=== PATIENT | male | born 1945 | race Two or more races ===

== ENCOUNTER 2022-03-15 17:55 | Emergency (ER) | payer BC ==
[~2022-03-15] VITALS: Ht 172.7 cm; Wt 81.6 kg
--- NOTE | 2022-03-15 18:27 | NUR ---
Patient triaged and placed in waiting room. VSS and patient appears in no acute distress at this time. Accompanied by DAUGHTER, awaiting available bed, and MD notified of need for MSE. Addendum: 03/16/22 at 0827 by [email or web address] CLARIFICATION: CHARTING ON WRONG PT.
--- NOTE | 2022-03-15 18:40 | NUR ---
MD HARRY AT BESIDE
[2022-03-15 20:08] LABS: BASOPHILS % (AUTO) 0.6 % (0.0-2.0); EOSINOPHILS # (AUTO) 0.2 K/uL (0.0-0.4); EOSINOPHILS % (AUTO) 2.5 % (0.0-4.0); HEMOGLOBIN 12.3 g/dL (14.0-18.0); LYMPHOCYTES # (AUTO) 1.1 K/uL (1.0-5.5); LYMPHOCYTES % (AUTO) 14.5 % (20.5-51.5); MEAN CORPUSCULAR HEMOGLOBIN 32 pg (27-31); MEAN CORPUSCULAR HGB CONC 34 % (32-36); MEAN CORPUSCULAR VOLUME 95 fL (79.0-98.0); MONOCYTES # (AUTO) 0.7 K/uL (0.0-1.0); MONOCYTES % (AUTO) 8.8 % (1.7-9.3); NEUTROPHILS # (AUTO) 5.6 K/uL (1.8-7.7); NEUTROPHILS % (AUTO) 73.6 % (40.0-70.0); PLATELET COUNT (AUTO) 145 K/uL (130-430); RED CELL DISTRIBUTION WIDTH 14.5 % (9.0-15.0); WHITE BLOOD COUNT (AUTO) 7.6 K/uL (4.8-10.8)
[2022-03-15 20:21] LABS: ANION GAP 9 (5-15); CALCIUM 8.9 mg/dL (8.4-11.0); CHLORIDE 106 mmol/L (98-107); CREATININE 2.27 mg/dL (0.55-1.30); GLUCOSE 109 mg/dL (70-99); POTASSIUM 4.6 mmol/L (3.5-5.1); UREA NITROGEN, BLOOD 27 mg/dL (8-21)
[2022-03-15 20:49] LABS: ALANINE AMINOTRANSFERASE 18 U/L (12-78); ALBUMIN 3.3 g/dL (3.4-4.8); ASPARTATE AMINOTRANSFERASE 19 U/L (10-37); LIPASE 79 U/L (73-393); TOTAL BILIRUBIN 0.6 mg/dL (0.0-1.0)
--- NOTE | 2022-03-15 22:50 | NUR ---
BIBS FROM HOME STATES LOWER BACK AND STOMACH PAIN, NO BM SINCE SATURDAY. ON ELIQU. SX: CHOLECYSTECTOMY, SPLEECECTOMY, RIGHT ARM HX: VERTIGO, R EAR DEAFNESS, PACEMAKER, BLOOD CLOTS
[2022-03-15] MEDS ORDERED: LABETALOL 100 MG/ 20ML VIAL IVP ONE (23:45)
[2022-03-15 23:55] LABS: BILIRUBIN,URINE NEGATIVE (NEGATIVE); BLOOD, URINE TRACE (NEGATIVE); CLARITY/URINE CLEAR (CLEAR); COLOR,URINE YELLOW (YELLOW); GLUCOSE,URINE NEGATIVE (NEGATIVE); KETONES,URINE TRACE (NEGATIVE); LEUKOCYTE ESTERASE ,URINE NEGATIVE (NEGATIVE); NITRITE, URINE NEGATIVE (NEGATIVE); PH,URINE 7.5 (5.0-8.0); PROTEIN URINE NEGATIVE (NEGATIVE); UROBILINOGEN,URINE 0.2 (0.2-1.0)
[2022-03-15 23:59] LABS: BACTERIA,URINE None Seen /HPF (None Seen); MUCUS,URINE None Seen /LPF (None Seen); RBC,URINE 0-3 /HPF (0-3); WBC,URINE NONE SEEN /HPF (0-3)
--- NOTE | 2022-03-16 00:15 | NUR ---
PT TAKEN TO CT
--- NOTE | 2022-03-16 02:00 | NUR ---
Patient to be transferred to [facility]. PT IS being transferred due to higher level of care. Receiving facility has accepting physician and available space. ER physician has signed transfer form. Patient or responsible green party has agreed to transfer and signed form. Patient belongings inventoried and will be sent with patient. Copy of nursing notes, lab reports, EKG, Physicians Orders and X-rays to be sent with patient. Ambulance service has been called for transfer. ETA is 10:00AM.
--- NOTE | 2022-03-16 02:50 | NUR ---
PROVIDED PT WITH SANDWICH AND JUICE
--- NOTE | 2022-03-16 03:10 | NUR ---
Patient resting quietly. No acute distress noted. Vital signs within normal range.
--- NOTE | 2022-03-16 06:44 | NUR ---
COVID 19 SWAB TEST ADMINISTERED BY SOLOMON WHITNEY AND SWAB SENT TO THE LAB FOR ANALYSIS
--- NOTE | 2022-03-16 07:10 | NUR ---
ENDORSEMENT REPORT GIVEN TO CAMERON NAYLOR. QUESTIONS CONCERNS ANSWERED.
--- NOTE | 2022-03-16 07:20 | NUR ---
RECEIVED PT FROM CAMERON AN. ASSUMED CARE. PT IS AAOX4, TELEMONITOR SHOWS PACED ON DEMAND, NSR WITH INTERMITTENT PVCS. ABDOMEN SOFT, TENDER, NONDISTENDED. BOWEL SOUNDS ACTIVE X4. PERIPHERAL PULSES NORMAL, SKIN WARM, NO EDEMA. IV CATH TO LAC 18G IN PLACE, FLUSHED, PATENT. SITE WNL. PT DENIES PAIN AT THIS TIME. SIDERAILS UP X2.
--- NOTE | 2022-03-16 07:58 | NUR ---
PT TO TRANSFER TO [facility] ER, CALLED AND GAVE REPORT TO CAMERON CHAO AT [phone]. INFORMED HER THAT PT IS SCHEDULED TO TRANSFER AT [address] [facility], ADMITTING MD IS DR. FRAZIER. PT MADE AWARE OF TRANSFER, ALL FORMS SIGNED.
--- NOTE | 2022-03-16 08:25 | NUR ---
CALLED PT'S DAUGHTER IN [place] TO SEE IF PT HAD ASSISTANCE AT HOME. [place] STATED THAT THE PATIENT HAS 2 SONS THAT CAN HELP AND THAT ONE WILL BE AT THE HOSPITAL FOR DISCHARGE.
[2022-03-16 10:09] VITALS: BP_SYST 115
--- NOTE | 2022-03-16 11:47 | NUR ---
Patient to be transferred to [facility]. Is being transferred due to higher level of care. Receiving facility has accepting physician and available space. ER physician Dr. Song has signed transfer form. Patient or responsible democrat has agreed to transfer and signed form. Patient belongings inventoried and will be sent with patient. Copy of nursing notes, lab reports, EKG, Physicians Orders and X-rays to be sent with patient. Report called to CAMERON Olvera at receiving facility. Receiving physician is Dr. Michelle. [facility] service has been called for transfer. ETA is 1145.
== END 2022-03-16 08:25 | disposition short-term general hospital (02) ==
LOC: SED 17:55
DX: I71.40 Abdominal aortic aneurysm, without rupture, unspecified (principal); R10.30 Lower abdominal pain, unspecified; M54.50 Low back pain, unspecified; K59.00 Constipation, unspecified; Z88.5 Allergy status to narcotic agent; Z88.6 Allergy status to analgesic agent; Z79.899 Other long term (current) drug therapy; Z20.822 Contact with and (suspected) exposure to COVID-19
CPT/HCPCS: 99285; 74176; 87426; 80053; 81000; 83690; 85025; 36415; 76376 ×2; 74177; 96374; J3490; Q9967